=== PATIENT | male | born 1950 | race Caucasian/White ===

== ENCOUNTER 2019-06-12 04:19 | Emergency (ER) | payer BC ==
--- OUTSIDE RECORDS SUMMARY | 2019-06-12 04:22 | XMS REPORT ---
:1950 [facility] Address [address] [place] [id number] Care Team Providers Name Role Phone Unavailable Unavailable Unavailable Problems This patient has no known problems. Allergies, Adverse Reactions, Alerts This patient has no known allergies or adverse reactions. Medications This patient has no known medications.
--- NOTE | 2019-06-12 06:19 | EDPHYS ---
Physician Documentation [facility] Name: Angel Mayorga Age: 69 yrs Sex: Male : 1950 Arrival Date: 06/12/2019 Time: 04:22 Bed 15 Private MD: Abdias Diaz B ED Physician Ghassan Staton HPI: 06/12 04:51 This 69 yrs old Male presents to ER via Ambulatory with complaints of rn hematuria. 04:51 The patient presents with urinary symptoms, hematuria. rn 05:32 Onset: The symptoms/episode began/occurred just prior to arrival. Modifying factors: rn The symptoms are alleviated by nothing, the symptoms are aggravated by urinating. Associated signs and symptoms: Pertinent positives: hematuria, Pertinent negatives: abdominal pain, diarrhea, fever, nausea, vomiting. Severity of symptoms: At their worst the symptoms were mild, in the emergency department the symptoms have improved. The patient has not experienced similar symptoms in the past. The patient has been recently seen by a physician:. Reports had bladder tumor removed by Dr. Ley, reports got back on blood thinner shortly after, was doing well, today woke up to use bathroom and noticed blood-tinged urine when urinating. No fever/trauma/vomiting. Denies clots. . Historical: - Allergies: 04:50 No Known Allergies; - Home Meds: 04:50 atenolol 100 mg Oral tab 1 tab once daily [Active]; candesartan 32 mg oral tab 1 tab wh once daily [Active]; amitriptyline 25 mg Oral tab 1 tab 2 times per day [Active]; Eliquis 5 mg oral tab 1 tab daily [Active]; flecainide 100 mg oral tab 1 tab daily [Active]; amlodipine oral [Active]; rosuvastatin 5 mg oral tab 1 tab once daily [Active]; - PMHx: 04:50 High Cholesterol; GERD; Hypertension; AFIB; Bladder Tumor; Pacemaker; wh - PSHx: 04:50 Bladder Tumor removal; - Immunization history:: Adult Immunizations up to date. - Social history:: Smoking status: Patient/guardian denies using tobacco. - Ebola Screening: : Patient negative for fever greater than or equal to 101.5 degrees Fahrenheit, and additional compatible Ebola Virus Disease symptoms Patient denies exposure to infectious person. - Family history:: not pertinent. - Hospitalizations: : No recent hospitalization is reported. ROS: 05:32 Constitutional: Negative for fever, chills, and weight loss, Eyes: Negative for injury, rn pain, redness, and discharge, Cardiovascular: Negative for chest pain, palpitations, and edema, Respiratory: Negative for shortness of breath, cough, wheezing, and pleuritic chest pain, Abdomen/GI: Negative for abdominal pain, nausea, vomiting, diarrhea, and constipation, Back: Negative for injury and pain, : + hematuria MS/Extremity: Negative for injury and deformity, Skin: Negative for injury, rash, and discoloration, Neuro: Negative for headache, weakness, numbness, tingling, and seizure. Exam: 05:32 Constitutional: This is a well developed, well nourished patient who is awake, alert, rn and in no acute distress. Ambulatory to room without difficulty or assistance. Head/Face: Normocephalic, atraumatic. ENT: MMM Cardiovascular: Regular rate and rhythm. No pulse deficits. Respiratory: No increased work of breathing, no retractions or nasal flaring. Abdomen/GI: soft, non-tender MS/ Extremity: Pulses equal, no cyanosis. Neurovascular intact. Full, normal range of motion. Equal circumference. Neuro: Awake and alert, GCS 15, oriented to person, place, time, and situation. Cranial nerves II-XII grossly intact. Motor strength 5/5 in all extremities. Sensory grossly intact. Cerebellar exam normal. Normal gait. Vital Signs: 04:41 BP 143 / 76; Pulse 60; Resp 18; Pulse Ox 100% ; Weight 102.06 kg; Height 5 ft. 11 in. wh (180.34 cm); 05:15 BP 152 / 89; Pulse 61; Resp 18; Pulse Ox 100% ; wh 06:15 BP 144 / 78; Pulse 61; Resp 18; Pulse Ox 99% on R/A; wh 04:41 Body Mass Index 31.38 (102.06 kg, 180.34 cm) MDM: 04:25 Patient medically screened. rn 06:04 Differential diagnosis: UTI, post surgical bleeding. Data reviewed: vital signs, nurses rn notes. 06:14 Counseling: I had a detailed discussion with the patient and/or guardian regarding: the rn historical points, exam findings, and any diagnostic results supporting the discharge/admit diagnosis, the need for outpatient follow up, to return to the emergency department if symptoms worsen or persist or if there are any questions or concerns that arise at home. Response to treatment: the patient's symptoms have mildly improved after treatment, and as a result, I will discharge patient. Refusal of service: The patient/guardian displays adequate decision making capability and despite a detailed discussion of alternatives, benefits, risks, and consequences refuses: catheter and irrigation. Special discussion: Based on the history and exam findings, there is no indication for further emergent testing or inpatient evaluation. I discussed with the patient/guardian the need to see the urologist for further evaluation of the symptoms. ED course: Patient able to urinate here, no gross hematuria, dip shows 3+ blood, neg nitrate and leukocyte esterase. Urinated again prior to discharge, had some gross blood in toilet, I recommended bladder irrigation, patient declines, states is going to hold blood thinner and monitor for improvement. Return precautions given and understood. Has urology appt on Thursday. Pt states otherwise asymptomatic, and would like chance to stop bleeding before getting catheter and irrigation.. 06/12 04:50 Order name: Urine Culture rn 06/12 04:50 Order name: Urine Dipstick-Ancillary (obtain specimen); Complete Time: 06:22 rn Administered Medications: No medications were administered Disposition: 06/12/19 06:18 Discharged to Home. Impression: Hematuria, unspecified. - Condition is Stable. - Discharge Instructions: Hematuria, Adult. - Medication Reconciliation Form, Thank You Letter, Antibiotic Education, Prescription Opioid Use form. - Follow up: Amadeo Ley MD; When: 1 - 2 days; Reason: Recheck today's complaints, Re-evaluation by your physician. - Problem is new. - Symptoms have improved. Signatures: Dispatcher [employer] EDMS Ghassan Staton MD MD rn Nicole Ortiz Corrections: (The following items were deleted from the chart) 06:18 05:46 CBC+H.LAB.BRZ ordered. EDIN EDMS 06:18 05:46 BASIC METABOLIC PANEL+C.LAB.BRZ ordered. EDIN EDMS 06:18 05:46 PROTIME (+INR)+COAG.LAB.BRZ ordered. EDIN EDMS 06:18 05:46 PTT, ACTIVATED+COAG.LAB.BRZ ordered. EDMS EDMS 06:22 05:45 IV Saline Lock ordered. tayla 06:32 06:18 06/12/2019 06:18 Discharged to Home. Impression: Hematuria, unspecified. Condition is Stable. Forms are Medication Reconciliation Form, Thank You Letter, Antibiotic Education, Prescription Opioid Use. Follow up: Amadeo Ley; When: 1 - 2 days; Reason: Recheck today's complaints, Re-evaluation by your physician. Problem is new. Symptoms have improved. rn
--- NOTE | 2019-06-12 06:19 | ER ---
Nurse's Notes [facility] Name: Angel Mayorga Age: 69 yrs Sex: Male : 1950 Arrival Date: 06/12/2019 Time: 04:22 Bed 15 Private MD: Abdias Diaz B Diagnosis: Hematuria, unspecified Presentation: 06/12 04:39 Presenting complaint: Patient states: He had a bladder tumor removal outpatient done last Thursday and today developed bleeding in urine. Pt states Hx of Afib and taking blood thinner. Transition of care: patient was not received from another setting of care. Onset of symptoms was June 12, 2019. Risk Assessment: Do you want to hurt yourself or someone else? Patient reports no desire to harm self or others. Initial Sepsis Screen: Does the patient meet any 2 criteria? No. Patient's initial sepsis screen is negative. Does the patient have a suspected source of infection? No. Patient's initial sepsis screen is negative. Care prior to arrival: None. 04:39 Method Of Arrival: Ambulatory 04:39 Acuity: DALIA 3 Historical: - Allergies: 04:50 No Known Allergies; - Home Meds: 04:50 atenolol 100 mg Oral tab 1 tab once daily [Active]; candesartan 32 mg oral tab 1 tab once daily [Active]; amitriptyline 25 mg Oral tab 1 tab 2 times per day [Active]; Eliquis 5 mg oral tab 1 tab daily [Active]; flecainide 100 mg oral tab 1 tab daily [Active]; amlodipine oral [Active]; rosuvastatin 5 mg oral tab 1 tab once daily [Active]; - PMHx: 04:50 High Cholesterol; GERD; Hypertension; AFIB; Bladder Tumor; Pacemaker; - PSHx: 04:50 Bladder Tumor removal; - Immunization history:: Adult Immunizations up to date. - Social history:: Smoking status: Patient/guardian denies using tobacco. - Ebola Screening: : Patient negative for fever greater than or equal to 101.5 degrees Fahrenheit, and additional compatible Ebola Virus Disease symptoms Patient denies exposure to infectious person. - Family history:: not pertinent. - Hospitalizations: : No recent hospitalization is reported. Screenin:41 Abuse screen: Denies threats or abuse. Denies injuries from another. Nutritional screening: No deficits noted. Tuberculosis screening: No symptoms or risk factors identified. Fall Risk None identified. Assessment: 04:42 General: Appears in no apparent distress. Behavior is calm, cooperative, appropriate wh for age. Pain: Denies pain. Neuro: Level of Consciousness is awake, alert, obeys commands, Oriented to person, place, time, situation, Appropriate for age. Cardiovascular: Heart tones S1 S2. Respiratory: Airway is patent Respiratory effort is even, unlabored, Respiratory pattern is regular, symmetrical. GI: Abdomen is flat, non-distended. : Reports bloody urine. EENT: No signs and/or symptoms were reported regarding the EENT system. Derm: Skin is intact, is healthy with good turgor, Skin is pink, warm \T\ dry. normal. Musculoskeletal: Circulation, motion, and sensation intact. 05:30 Reassessment: Patient appears in no apparent distress at this time. No changes from previously documented assessment. Patient and/or family updated on plan of care and expected duration. Pain level reassessed. Patient is alert, oriented x 3, equal unlabored respirations, skin warm/dry/pink. 06:31 Reassessment: Patient appears in no apparent distress at this time. No changes from previously documented assessment. Patient and/or family updated on plan of care and expected duration. Pain level reassessed. Patient is alert, oriented x 3, equal unlabored respirations, skin warm/dry/pink. Vital Signs: 04:41 BP 143 / 76; Pulse 60; Resp 18; Pulse Ox 100% ; Weight 102.06 kg; Height 5 ft. 11 in. (180.34 cm); 05:15 BP 152 / 89; Pulse 61; Resp 18; Pulse Ox 100% ; wh 06:15 BP 144 / 78; Pulse 61; Resp 18; Pulse Ox 99% on R/A; wh 04:41 Body Mass Index 31.38 (102.06 kg, 180.34 cm) ED Course: 04:22 Patient arrived in ED. es 04:23 Abdias Diaz MD is Private Physician. es 04:24 Nicole Ortiz is Primary Nurse. wh 04:25 Ghassan Staton MD is Attending Physician. rn 04:41 Triage completed. wh 04:41 Arm band placed on right wrist. wh 04:43 Patient has correct armband on for positive identification. Bed in low position. Call light in reach. Side rails up X 1. Pulse ox on. NIBP on. 06:18 Amadeo Ley MD is Referral Physician. rn 06:31 No provider procedures requiring assistance completed. Patient did not have IV access during this emergency room visit. Administered Medications: No medications were administered Outcome: :18 Discharge ordered by MD. rn 06:31 Discharged to home ambulatory, with family. 06:31 Condition: stable 06:31 Discharge instructions given to patient, family, Instructed on discharge instructions, follow up and referral plans. POC Hematuria Demonstrated understanding of instructions, follow-up care, POC 06:32 Patient left the ED. Signatures: Stephanie Ramos Roman, MD MD rn Habalo, Winsy
[2019-06-12 06:38] VITALS: BP 144/78; O2SAT 99
== END 2019-06-12 06:32 | disposition home or self-care (01) ==
LOC: ER 04:19
DX: R31.9 Hematuria, unspecified (principal); I10 Essential (primary) hypertension; K21.9 Gastro-esophageal reflux disease without esophagitis; E78.00 Pure hypercholesterolemia, unspecified; I48.91 Unspecified atrial fibrillation; Z95.0 Presence of cardiac pacemaker
CPT/HCPCS: 87086; 87088; 99283

== ENCOUNTER 2019-08-14 22:41 | Observation (INO) | payer BC ==
--- OUTSIDE RECORDS SUMMARY | 2019-08-14 22:44 | XMS REPORT ---
:1950 [facility] Address [address] [place] [id number] Care Team Providers Name Role Phone Unavailable Unavailable Unavailable Problems This patient has no known problems. Allergies, Adverse Reactions, Alerts This patient has no known allergies or adverse reactions. Medications This patient has no known medications.
[2019-08-14] MEDS ORDERED: LEVALBUTEROL 1.25 MG/3 ML NEB ONE (23:52)
[2019-08-14] MEDS ORDERED: IPRATROPIUM BROM 0.5MG/2.5ML ONE (23:52)
[2019-08-14] MEDS ORDERED: AZITHROMYCIN 500 MG INJ IVPB ONE (23:52)
[2019-08-14] MEDS ORDERED: CEFTRIAXONE/SWI 1gm 1 GM/10 ML SYR ONE (23:52)
[2019-08-14] MEDS ORDERED: NA CHLORIDE 0.9% 250 ML ONE (23:52)
[2019-08-14] MEDS ORDERED: NA CHLORIDE 0.9% 1,000 ML ONE (23:52)
[2019-08-15 00:23] LABS: Absolute Lymphocytes (CBC) 0.8 K/uL (0.7-4.9); Basophils % 0.3 % (0-1.3); Hematocrit 35.8 % (39.6-49.0); Lymphocytes % 7.6 % (15.3-44.8); RBC Red Blood Cell Count 3.92 M/uL (4.33-5.43)
[2019-08-15 00:37] LABS: ALT/SGPT 20 U/L (12-78); AST/SGOT 13 U/L (15-37); Albumin 3.1 g/dL (3.4-5.0); Alkaline Phosphatase 61 U/L (45-117); BUN Blood Urea Nitrogen 22 mg/dL (7-18); Bicarbonate 27 mmol/L (21-32); Bilirubin Total 0.5 mg/dL (0.2-1.0); Glucose Level 147 mg/dL (74-106); NT PRO-BNP 515 pg/mL (<125); Potassium 3.5 mmol/L (3.5-5.1); Protein, Total 7.5 g/dL (6.4-8.2); Sodium Level 137 mmol/L (136-145); Troponin (Emerg Dept Use Only) < 0.02 ng/mL (0.0-0.045)
[2019-08-15] MEDS ORDERED: CEFTRIAXONE/SWI 1gm 1 GM/10 ML SYR ONE (00:53)
--- NOTE | 2019-08-15 01:32 | ER ---
Nurse's Notes [facility] Name: Angel Mayorga Age: 69 yrs Sex: Male : 1950 Arrival Date: 08/14/2019 Time: 22:44 Bed 18 Private MD: Diagnosis: Fever, unspecified;Dyspnea;Syncope and collapse-near;Cough;Atrial fibrillation and flutter;Unspecified kidney failure Presentation: 08/14 23:00 Presenting complaint: Patient states: STARTED FEELING SICK THURSDAY. THURSDAY VISITED rv CLINIC BECAUSE OF COUGH, BUT NO FEVER. THURSDAY STARTED DEVELOPING FEVER AND FELT WORSE. Transition of care: patient was not received from another setting of care. Onset of symptoms was August 14, 2019 at 19:00. Risk Assessment: Do you want to hurt yourself or someone else? Patient reports no desire to harm self or others. Initial Sepsis Screen: Does the patient meet any 2 criteria? No. Patient's initial sepsis screen is negative. Does the patient have a suspected source of infection? No. Patient's initial sepsis screen is negative. Care prior to arrival: None. 23:00 Method Of Arrival: Ambulatory rv 23:00 Acuity: DALIA 4 rv Triage Assessment: 23:03 General: Appears in no apparent distress. comfortable, Behavior is calm, cooperative. rv Pain: Denies pain. EENT: No signs and/or symptoms were reported regarding the EENT system. Neuro: Level of Consciousness is awake, alert, obeys commands, Oriented to person, place, time, situation. Cardiovascular: Patient's skin is warm and dry. Respiratory: Airway is patent. Derm: Skin is intact, with poor turgor. Historical: - Allergies: 23:03 No Known Allergies; rv - PMHx: 23:03 AFIB; bladder tumor; GERD; High Cholesterol; Hypertension; Pacemaker; rv - PSHx: 23:03 Appendectomy; PACEMAKER; rv - Immunization history:: Adult Immunizations up to date. - Social history:: Smoking status: Patient/guardian denies using tobacco, the patient reports quitting approximately 30 years ago. - Ebola Screening: : No symptoms or risks identified at this time. - Family history:: not pertinent. Screenin:04 Abuse screen: Denies threats or abuse. Denies injuries from another. Nutritional rv screening: No deficits noted. Tuberculosis screening: No symptoms or risk factors identified. Fall Risk None identified. Assessment: 23:04 Reassessment: SEE TRIAGE NOTES. rv 08/15 01:07 Reassessment: Patient appears in no apparent distress at this time. Patient and/or rv family updated on plan of care and expected duration. Pain level reassessed. Patient is alert, oriented x 3, equal unlabored respirations, skin warm/dry/pink. Patient denies pain at this time. Patient states feeling better. Vital Signs: 08/14 23:02 BP 105 / 71; Pulse 67; Resp 19; Temp 98; Pulse Ox 94% on R/A; Weight 99.79 kg; Height 5 rv ft. 11 in. (180.34 cm); Pain 0/10; 08/15 00:00 BP 92 / 64; Pulse 64; Resp 18; Pulse Ox 95% on R/A; rv 01:00 BP 95 / 62; Pulse 64; Resp 17; Pulse Ox 95% on 3 lpm NC; rv 01:45 BP 96 / 57; Pulse 62; Resp 17; Pulse Ox 95% on 3 lpm NC; rv 02:27 BP 98 / 55; Pulse 66; Resp 17; Pulse Ox 96% on 3 lpm NC; rv 08/14 23:02 Body Mass Index 30.68 (99.79 kg, 180.34 cm) rv ED Course: 08/14 22:44 Patient arrived in ED. cl3 22:55 Fam Duran, RN is Primary Nurse. rv 23:02 Triage completed. rv 23:03 Arm band placed on Patient placed Patient notified of wait time. rv 23:04 Patient has correct armband on for positive identification. Pulse ox on. NIBP on. rv 23:15 David Frances MD is Attending Physician. sindi 23:50 Inserted saline lock: 22 gauge in left forearm, using aseptic technique. Blood rv collected. 23:50 First set of blood cultures drawn by me. rv 08/15 00:03 Chest Single View XRAY In Process Unspecified. EDMS 00:10 Second set of blood cultures drawn by me. rv 01:18 Notified ED physician of a critical lab result(s). D-Dimer of [id number] Dr Frances notified. bb 01:29 Elder Castaneda MD is Hospitalizing Provider. sindi 01:35 Thorax Wo Con In Process Unspecified. EDMS 02:27 No provider procedures requiring assistance completed. Patient admitted, IV remains in rv place. 07:01 Primary Nurse role handed off by Fam Duran RN bp 07:01 Mello Parrish, SAGE is Primary Nurse. bp 10:29 EKG done, by pv installer tech. at1 Administered Medications: 08/14 23:40 Drug: Xopenex 2.5 mg Route: Inhalation; rv 08/15 00:49 Follow up: Response: Marked relief of symptoms rv 08/14 23:40 Drug: AtroVENT Aerosol 0.5 mg Route: Inhalation; rv 08/15 00:49 Follow up: Response: Marked relief of symptoms rv 08/14 23:55 Drug: NS 0.9% 1000 ml Route: IV; Rate: 1 bolus; Site: left forearm; rv 08/15 01:07 Follow up: IV Status: Completed infusion; IV Intake: 1000ml rv 00:15 Drug: Zithromax 500 mg Route: IVPB; Infused Over: 1 hrs; Site: left forearm; rv 01:07 Follow up: IV Status: Completed infusion rv 00:15 Drug: Rocephin 2 grams Route: IV; Rate: per protocol; Site: left forearm; rv 01:04 Follow up: IV Status: Completed infusion rv 01:36 Drug: NS 0.9% 500 ml Route: IV; Rate: bolus; Site: left forearm; rv 02:26 Follow up: IV Status: Completed infusion; IV Intake: 500ml rv 02:26 Drug: NS 0.9% 1000 ml Route: IV; Rate: 125 ml/hr; Site: left forearm; rv 02:26 Follow up: IV Status: Infusion continued upon admission rv Intake: 01:07 IV: 1000ml; Total: 1000ml. rv 02:26 IV: 500ml; Total: 1500ml. rv Outcome: 01:28 Discharge ordered by . sindi 01:31 Decision to Hospitalize by Provider. sindi 02:27 Admitted to ER Hold. Please see [facility] for further documentation. rv 02:27 Condition: stable 02:27 Discharge instructions given to patient, family, Instructed on the need for admit. 10:31 Patient left the ED. bp Signatures: Dispatcher [employer] EDMS David Frances MD MD cha Ballard, Brenda, RN RN Marlin Shipman, area captain EKG Tat1 Mello Parrish, RN RN bp Fam Duran, RN RN rv Candie Hernández cl3
--- NOTE | 2019-08-15 01:32 | EDPHYS ---
Physician Documentation [facility] Name: Angel Mayorga Age: 69 yrs Sex: Male : 1950 Arrival Date: 08/14/2019 Time: 22:44 Bed 18 Private MD: ED Physician David Frances HPI: 08/14 23:32 This 69 yrs old Male presents to ER via Ambulatory with complaints of Flu sindi Symptoms. 23:32 The patient has shortness of breath at rest, with light activity. Onset: The sindi symptoms/episode began/occurred 4 day(s) ago. Duration: The symptoms are continuous, and are steadily getting worse. The patient's shortness of breath has no apparent modifying factors. The patient or guardian reports cough, that is intermittent, difficulty breathing, flu symptoms, arthralgias, low-grade fever, myalgias. Modifying factors: The symptoms are alleviated by nothing. the symptoms are aggravated by nothing. Severity of symptoms: At their worst the symptoms were mild in the emergency department the symptoms are unchanged. Historical: - Allergies: 23:03 No Known Allergies; rv - PMHx: 23:03 AFIB; bladder tumor; GERD; High Cholesterol; Hypertension; Pacemaker; rv - PSHx: 23:03 Appendectomy; PACEMAKER; rv - Immunization history:: Adult Immunizations up to date. - Social history:: Smoking status: Patient/guardian denies using tobacco, the patient reports quitting approximately 30 years ago. - Ebola Screening: : No symptoms or risks identified at this time. - Family history:: not pertinent. ROS: 23:32 Constitutional: Negative for fever, chills, and weight loss, Eyes: Negative for injury, sindi pain, redness, and discharge, ENT: Negative for injury, pain, and discharge, Neck: Negative for injury, pain, and swelling, Cardiovascular: Negative for chest pain, palpitations, and edema, Abdomen/GI: Negative for abdominal pain, nausea, vomiting, diarrhea, and constipation, Back: Negative for injury and pain, : Negative for injury, bleeding, discharge, and swelling, MS/Extremity: Negative for injury and deformity, Skin: Negative for injury, rash, and discoloration, Neuro: Negative for headache, weakness, numbness, tingling, and seizure, Psych: Negative for depression, anxiety, suicide ideation, homicidal ideation, and hallucinations, Allergy/Immunology: Negative for hives, rash, and allergies, Endocrine: Negative for neck swelling, polydipsia, polyuria, polyphagia, and marked weight changes, Hematologic/Lymphatic: Negative for swollen nodes, abnormal bleeding, and unusual bruising. 23:32 Respiratory: Positive for cough, shortness of breath, on exertion. Exam: 23:32 Constitutional: This is a well developed, well nourished patient who is awake, alert, sindi and in no acute distress. Head/Face: Normocephalic, atraumatic. Eyes: Pupils equal round and reactive to light, extra-ocular motions intact. Lids and lashes normal. Conjunctiva and sclera are non-icteric and not injected. Cornea within normal limits. Periorbital areas with no swelling, redness, or edema. ENT: Nares patent. No nasal discharge, no septal abnormalities noted. Tympanic membranes are normal and external auditory canals are clear. Oropharynx with no redness, swelling, or masses, exudates, or evidence of obstruction, uvula midline. Mucous membranes moist. Neck: Trachea midline, no thyromegaly or masses palpated, and no cervical lymphadenopathy. Supple, full range of motion without nuchal rigidity, or vertebral point tenderness. No Meningismus. Chest/axilla: Normal chest wall appearance and motion. Nontender with no deformity. No lesions are appreciated. Cardiovascular: Regular rate and rhythm with a normal S1 and S2. No gallops, murmurs, or rubs. Normal PMI, no JVD. No pulse deficits. Abdomen/GI: Soft, non-tender, with normal bowel sounds. No distension or tympany. No guarding or rebound. No evidence of tenderness throughout. Back: No spinal tenderness. No costovertebral tenderness. Full range of motion. Male : Normal genitalia with no discharge or lesions. Skin: Warm, dry with normal turgor. Normal color with no rashes, no lesions, and no evidence of cellulitis. MS/ Extremity: Pulses equal, no cyanosis. Neurovascular intact. Full, normal range of motion. Neuro: Awake and alert, GCS 15, oriented to person, place, time, and situation. Cranial nerves II-XII grossly intact. Motor strength 5/5 in all extremities. Sensory grossly intact. Cerebellar exam normal. Normal gait. Psych: Awake, alert, with orientation to person, place and time. Behavior, mood, and affect are within normal limits. 23:32 Respiratory: the patient does not display signs of respiratory distress, Respirations: normal, Breath sounds: decreased breath sounds, rhonchi, that are mild, are scattered, Respiratory rate: 19 23:58 Musculoskeletal/extremity: DVT Exam: No signs of deep vein thrombosis. no pain, no sindi swelling, no tenderness, negative Homans' sign noted on exam, no appreciated bluish discoloration, no erythema, no increased warmth. Vital Signs: 23:02 BP 105 / 71; Pulse 67; Resp 19; Temp 98; Pulse Ox 94% on R/A; Weight 99.79 kg; Height 5 rv ft. 11 in. (180.34 cm); Pain 0/10; 08/15 00:00 BP 92 / 64; Pulse 64; Resp 18; Pulse Ox 95% on R/A; rv 01:00 BP 95 / 62; Pulse 64; Resp 17; Pulse Ox 95% on 3 lpm NC; rv 01:45 BP 96 / 57; Pulse 62; Resp 17; Pulse Ox 95% on 3 lpm NC; rv 02:27 BP 98 / 55; Pulse 66; Resp 17; Pulse Ox 96% on 3 lpm NC; rv 08/14 23:02 Body Mass Index 30.68 (99.79 kg, 180.34 cm) rv MDM: 08/14 23:15 Patient medically screened. [facility] 23:35 Data reviewed: vital signs, nurses notes, lab test result(s), EKG, radiologic studies, sindi plain films. 08/14 23:06 Order name: Flu; Complete Time: 00:19 08/14 23:32 Order name: CBC with Diff; Complete Time: 00:36 [facility] 08/14 23:32 Order name: Comprehensive Metabolic Panel [facility] 08/14 23:32 Order name: Blood Culture Adult (2) [facility] 08/14 23:32 Order name: Troponin (emerg Dept Use Only) [facility] 08/14 23:32 Order name: BNP [facility] 08/15 01:02 Order name: D-Dimer [facility] 08/15 01:28 Order name: Urine Culture [facility] 08/15 01:42 Order name: Basic Metabolic Panel [facility] 08/15 01:42 Order name: Basic Metabolic Panel [facility] 08/14 23:56 Order name: Chest Single View XRAY [facility] 08/15 01:03 Order name: Thorax Wo Con [facility] 08/15 01:42 Order name: Lipid Profile [facility] 08/15 01:42 Order name: Lipid Profile [facility] 08/15 01:42 Order name: Troponin I [facility] 08/15 01:42 Order name: Troponin I [facility] 08/15 01:42 Order name: Troponin I [facility] 08/15 01:43 Order name: Echo with Doppler [facility] 08/15 01:43 Order name: Vent Perfusion VQ Scan [facility] 08/15 01:43 Order name: Extrem Venous W Compress Marcial [facility] 08/15 01:43 Order name: Magnesium [facility] 08/15 01:44 Order name: Protime (+INR) [facility] 08/15 08:29 Order name: US [facility] 08/15 01:27 Order name: EKG; Complete Time: 01: [facility] 08/15 01:27 Order name: Cardiac monitoring; Complete Time: : [facility] 08/15 01:27 Order name: EKG - Nurse/Tech; Complete Time: 01:39 [facility] 08/15 01:27 Order name: IV Saline Lock; Complete Time: : [facility] 08/15 01:27 Order name: Labs collected and sent; Complete Time: : [facility] 08/15 01:27 Order name: O2 Per Protocol; Complete Time: [facility] 08/15 01:27 Order name: O2 Sat Monitoring; Complete Time: : [facility] 08/15 01:43 Order name: Heart Healthy [facility] 08/15 01:43 Order name: EKG Electrocardiogram [facility] 08/15 01:43 Order name: EKG Electrocardiogram [facility] Administered Medications: 23:40 Drug: Xopenex 2.5 mg Route: Inhalation; rv 08/15 00:49 Follow up: Response: Marked relief of symptoms rv 08/14 23:40 Drug: AtroVENT Aerosol 0.5 mg Route: Inhalation; rv 08/15 00:49 Follow up: Response: Marked relief of symptoms rv 08/14 23:55 Drug: NS 0.9% 1000 ml Route: IV; Rate: 1 bolus; Site: left forearm; rv 08/15 01:07 Follow up: IV Status: Completed infusion; IV Intake: 1000ml rv 00:15 Drug: Zithromax 500 mg Route: IVPB; Infused Over: 1 hrs; Site: left forearm; rv 01:07 Follow up: IV Status: Completed infusion rv 00:15 Drug: Rocephin 2 grams Route: IV; Rate: per protocol; Site: left forearm; rv 01:04 Follow up: IV Status: Completed infusion rv 01:36 Drug: NS 0.9% 500 ml Route: IV; Rate: bolus; Site: left forearm; rv 02:26 Follow up: IV Status: Completed infusion; IV Intake: 500ml rv 02:26 Drug: NS 0.9% 1000 ml Route: IV; Rate: 125 ml/hr; Site: left forearm; rv 02:26 Follow up: IV Status: Infusion continued upon admission rv Disposition: 08/15/19 01:31 Hospitalization ordered by Elder Castaneda for Inpatient Admission. Preliminary diagnosis are Fever, unspecified, Dyspnea, Syncope and collapse - near, Cough, Atrial fibrillation and flutter, Unspecified kidney failure. - Bed requested for Telemetry/MedSurg (Inpatient). - Status is Inpatient Admission. bp - Condition is Fair. - Problem is new. - Symptoms have improved. UTI on Admission? No Signatures: Dispatcher [employer] [facility] Kadie Canchola RN David Prasad MD MD cha Peltier, Brian, RN RN Fam Marsh, RN RN rv Corrections: (The following items were deleted from the chart) 00:08 08/14 23:32 Chest Pa And Lat (2 Views)+RAD.RAD.BRZ ordered. [facility] 08/15 01:03 08/14 23:56 Chest For PE Angio+CT.RAD.BRZ ordered. [facility] 08/15 01:05 01:03 Thorax Wo Con+CT.RAD.BRZ ordered. [facility] 01:29 01:28 08/15/2019 01:28 Discharged to Home. Impression: Fever, unspecified; Acute upper sindi respiratory infection, unspecified. Condition is Stable. Discharge Instructions: Fever, Adult, Upper Respiratory Infection, Adult, Upper Respiratory Infection, Adult, Guhk-tz-Rsay, Cough, Adult. Prescriptions for Medrol (Macario) 4 mg Oral Tablets, Dose Pack - take 1 tablet by ORAL route as directed - follow package instructions; 1 packet, Albuterol Sulfate 90 mcg/actuation - inhale 1-2 puff by INHALATION route every 4-6 hours; 1 Inhaler, Zithromax 500 mg Oral Tablet - take 1 tablet by ORAL route once daily for 4 days; 4 tablet. and Forms are Medication Reconciliation Form, Thank You Letter, Antibiotic Education, Prescription Opioid Use. Follow up: Private Physician; When: 2 - 3 days; Reason: Recheck today's complaints, Continuance of care, Re-evaluation by your physician. Problem is new. Symptoms have improved. sindi 01:32 01:31 Hospitalization Ordered by Elder Castaneda MD for Inpatient Admission. Preliminary sindi diagnosis is Fever, unspecified; Dyspnea; Syncope and collapse - near; Cough; Atrial fibrillation and flutter. Bed requested for Telemetry/MedSurg (Inpatient). Status is Inpatient Admission. Condition is Fair. Problem is new. Symptoms have improved. UTI on Admission? No. sindi 01:38 01:32 08/15/2019 01:31 Hospitalization Ordered by Elder Castaneda MD for Inpatient mw Admission. Preliminary diagnosis is Fever, unspecified; Dyspnea; Syncope and collapse - near; Cough; Atrial fibrillation and flutter; Unspecified kidney failure. Bed requested for Telemetry/MedSurg (Inpatient). Status is Inpatient Admission. Condition is Fair. Problem is new. Symptoms have improved. UTI on Admission? No. sindi 01:43 01:27 BASIC METABOLIC PANEL+C.LAB.BRZ ordered. [facility] 01:43 01:27 HEPATIC FUNCTION+C.LAB.BRZ ordered. [facility] 01:43 01:27 MAGNESIUM+C.LAB.BRZ ordered. [facility] 01:44 01:27 PROTIME (+INR)+COAG.LAB.BRZ ordered. [facility] 06:47 01:38 08/15/2019 01:31 Hospitalization Ordered by Elder Castaneda MD for Inpatient mw Admission. Preliminary diagnosis is Fever, unspecified; Dyspnea; Syncope and collapse - near; Cough; Atrial fibrillation and flutter; Unspecified kidney failure. Bed requested for [facility] ER HOLD. Status is Inpatient Admission. Condition is Fair. Problem is new. Symptoms have improved. UTI on Admission? No. mw 10:31 06:47 08/15/2019 01:31 Hospitalization Ordered by Elder Castaneda MD for Inpatient bp Admission. Preliminary diagnosis is Fever, unspecified; Dyspnea; Syncope and collapse - near; Cough; Atrial fibrillation and flutter; Unspecified kidney failure. Bed requested for Telemetry/MedSurg (Inpatient). Status is Inpatient Admission. Condition is Fair. Problem is new. Symptoms have improved. UTI on Admission? No. mw
[2019-08-15] MEDS ORDERED: NA CHLORIDE 0.9% 1,000 ML ONE (01:35)
[2019-08-15] MEDS ORDERED: ACETAMINOPHEN 500 MG TAB PO PRN (01:37)
[2019-08-15] MEDS ORDERED: ALPRAZOLAM 0.25 MG TABLET PO PRN (01:37)
[2019-08-15 01:47] LABS: Protime INR 1.75
[2019-08-15 01:48] LABS: Magnesium 1.9 mg/dL (1.8-2.4)
[2019-08-15 02:02] VITALS: BMI 30.7
[2019-08-15] MEDS: METOPROLOL TAR 50 MG TAB PO SCH ×2 (05:04→09:00)
[2019-08-15 06:36] LABS: HDL Cholesterol 32 mg/dL (40-60); LDL Cholesterol, Calculated 61 (<130); Troponin I < 0.02 ng/mL (0.0-0.045)
[2019-08-15] MEDS: PANTOPRAZOLE 40MG TABLET PO SCH ×2 (08:00→15:41)
--- NOTE | 2019-08-15 08:08 | RAD REPORT ---
EXAM DESCRIPTION: US - Extrem Venous W Compress Marcial - 08/15/2019 7:32 am CLINICAL HISTORY: DVT Bilateral leg edema and swelling. COMPARISON: No comparisons TECHNIQUE: Real-time sonographic interrogation of the left and right lower extremity deep venous sys tems was performed. FINDINGS: Normal compressibility, flow augmentation, phasic flow and spontaneous flow is identified in both the left and right lower extremity deep venous systems. IMPRESSION: No sonographic evidence of left or right lower extremity deep venous thrombosis.
--- NOTE | 2019-08-15 08:13 | RAD REPORT ---
EXAM DESCRIPTION: NM - Vent Perfusion VQ Scan - 08/15/2019 7:15 am CLINICAL HISTORY: Pulmonary embolism Chest pain, shortness of breath COMPARISON: Thorax Wo Con dated 08/15/2019 TECHNIQUE: 13.3mCi Xe-133 gas inhaled and 7.2mCi Tc-MAA IV. Planar ventilation scan was performed in posterior projection after Xe-133 gas inhalation (wash-in, e quilibrium, and wash-out phases) followed by perfusion scan with Tc-MAA IV in multiple projections. Examination is correlated with recent chest radiograph. FINDINGS: Normal ventilation with appropriate wash-out and no significant air-trapping. No mismatched segmental perfusion defect. IMPRESSION: Very low probability of acute pulmonary embolism.
--- NOTE | 2019-08-15 08:17 | RAD REPORT ---
EXAM DESCRIPTION: RAD - Chest Single View - 08/15/2019 12:02 am CLINICAL HISTORY: Cough;Dyspnea Chest pain. COMPARISON: Chest Pa And Lat (2 Views) dated 05/23/2019; CHEST PA AND LAT 2 VIEW dated 03/06/2010; CH EST PA AND LAT 2 VIEW dated 11/14/2004 FINDINGS: Portable technique limits examination quality. The lungs are emphysematous but grossly clear. The heart is upper limit of normal in size. No displac ed fractures.Dual lead pacer device is in place.
--- NOTE | 2019-08-15 08:28 | RAD REPORT ---
EXAM DESCRIPTION: - CP - 08/15/2019 7:32 am CLINICAL HISTORY: near syncope Headache, drowsiness, syncope COMPARISON: No comparisons TECHNIQUE: Real-time sonographic evaluation of both carotid systems was performed. Doppler interroga tion was performed with waveform tracing bilaterally. FINDINGS: Normal high resistance waveforms are noted in both external carotid arteries. The common c arotid arteries and internal carotid arteries show normal low resistance waveforms. Mild mixed plaque is seen in both proximal internal carotid arteries. Peak systolic and end diastolic velocity values and the ICA/CCA ratios are in the non-hemodynamically significant range. Antegrade flow seen in both vertebral arteries. IMPRESSION: Mild mixed plaque is seen in both proximal internal carotid arteries. No evidence of a hemodynamically significant stenosis.
[2019-08-15] MEDS ORDERED: METHYLPREDNISOLONE 125 MG INJ IV ONE (08:50)
--- NOTE | 2019-08-15 08:58 | P.HP ---
Certification for Inpatient Patient admitted to: Observation With expected LOS: <2 Midnights Patient will require the following post-hospital care: None Practitioner: I am a practitioner with admitting privileges, knowledge of patient current condition, hospital course, and medical plan of care. Services: Services provided to patient in accordance with Admission requirements found in Title 42 Section 412.3 of the Code of Federal Regulations Patient History Date of Service: 08/15/19 Reason for admission: Near syncope; atrial fibrillation; persistant coughing & congestion History of Present Illness: Patient is a 69-year-old old gentleman who came into the hospital with persistent coughing congestion. Patient apparently had a near syncopal episode while getting a chest x-ray. Patient had atrial fibrillation and had a run of AFib with RVR. Decision was made to admit the patient to the hospital. They spoke to the PCP and they wanted patient admitted for possible pulmonary embolism. Patient on anti coagulation. This very unlikely. Patient be admitted to the hospital for V/Q scan. Patient also has a history of tobacco abuse. Patient quit smoking 1 years ago. Patient had a 50+ year smoking history. Patient has some emphysematous changes on a chest x-ray. Will probably treat him for COPD or have a follow-up as an outpatient with pulmonary to help with his coughing congestion. Allergies No Known Allergies Allergy (Verified 08/15/19 03:02) Home Medications: Amitriptyline [Elavil] 25 mg PO BID 08/15/19 Amlodipine Besylate 10 mg PO DAILY 08/15/19 Apixaban [Eliquis] 5 mg PO BID 08/15/19 Candesartan Cilexetil 32 mg PO DAILY 08/15/19 Esomeprazole Mag Trihydrate [Nexium] 20 mg PO BID 08/15/19 Flecainide [Tambocor] 100 mg PO BID 08/15/19 Rosuvastatin [Crestor] 5 mg PO BEDTIME 08/15/19 atenoloL [Atenolol] 100 mg PO DAILY 08/15/19 - Past Medical/Surgical History Has patient received pneumonia vaccine in the past: Yes -: hypertension -: Atrial fibrillation -: Tobacco use -: Pacemaker placement - Family History Father Family History: Reviewed- Non-Contributory - Social History Smoking Status: Former smoker Alcohol use: No CD- Drugs: No Place of Residence: Home Review of Systems 10-point ROS is otherwise unremarkable Physical Examination - Vital Signs Temperature: 97.8 F Blood Pressure: 93/56 Pulse: 62 Respirations: 16 Pulse Ox (%): 97 - Physical Exam General: Alert, In no apparent distress, Oriented x3 HEENT: Atraumatic, PERRLA, Mucous membr. moist/pink, EOMI, Sclerae nonicteric Neck: Supple, 2+ carotid pulse no bruit, No LAD, Without JVD or thyroid abnormality Respiratory: Clear to auscultation bilaterally, Normal air movement Cardiovascular: Regular rate/rhythm, Normal S1 S2, No murmurs Gastrointestinal: Normal bowel sounds, Soft and benign, Non-distended, No tenderness Musculoskeletal: No clubbing, No swelling, No tenderness Integumentary: No rashes Neurological: Normal gait, Normal speech, Normal strength at 5/5 x4 extr, Normal tone, Sensation intact, Cranial nerves 3-12 intact, Normal affect Lymphatics: No axilla or inguinal lymphadenopathy - Studies Laboratory Data (last 24 hrs) 08/15/19 01:27: PT Cancelled, INR Cancelled 08/15/19 01:27: Sodium Cancelled, Potassium Cancelled, BUN Cancelled, Creatinine Cancelled, Glucose Cancelled, Magnesium Cancelled, Total Bilirubin Cancelled, AST Cancelled, ALT Cancelled, Alkaline Phosphatase Cancelled 08/15/19 00:00: PT 20.2 H, INR 1.75 08/14/19 23:50: Sodium 137, Potassium 3.5, BUN 22 H, Creatinine 1.63 H, Glucose 147 H, Magnesium 1.9, Total Bilirubin 0.5, AST 13 L, ALT 20, Alkaline Phosphatase 61 08/14/19 23:50: WBC 10.3, Hgb 12.2 L, Hct 35.8 L, Plt Count 133 L Microbiology Data (last 24 hrs): 08/14/19 23:05 Nasopharnyx Influenza Type A Antigen Screen - Final 08/14/19 23:05 Nasopharnyx Influenza Type B Antigen Screen - Final Assessment & Plan - Problems (Diagnosis) (1) COPD with acute exacerbation Current Visit: Yes Status: Acute (2) Atrial fibrillation Current Visit: Yes Status: Acute (3) HTN (hypertension) Current Visit: Yes Status: Acute (4) Near syncope Current Visit: Yes Status: Acute - Plan Plan: 1. Carotid Doppler 2. Echocardiogram 3. V/Q scan 4. Venous Doppler 5. IV hydration 6. Steroids, inhaler therapy, and antibiotics 7. GI and DVT prophylaxis Discharge Plan: Home Plan to discharge in: 48 Hours - Advance Directives Does patient have a Living Will: No Does patient have a Durable POA for Healthcare: No - Code Status/Comfort Care Code Status Assessed: Yes Code Status: Full Code Critical Care: No Time Spent Managing PTS Care (In Minutes): 45
[2019-08-15] MEDS: FLECAINIDE 100 MG TAB PO SCH ×2 (09:00→20:56)
[2019-08-15] MEDS: atenoloL 50 MG TAB PO SCH (09:00)
[2019-08-15] MEDS: AMLODIPINE 10 MG TAB PO SCH (09:00)
[2019-08-15] MEDS ORDERED: ENOXAPARIN 100 MG/ML SYR SQ SCH (09:00)
[2019-08-15] MEDS: APIXABAN 5 MG TABLET PO SCH ×2 (09:00→20:55)
[2019-08-15] MEDS: AMITRIPTYLINE 25 MG TAB PO SCH ×2 (09:00→20:56)
[2019-08-15] MEDS: ASPIRIN EC 81 MG TAB PO SCH (09:00)
[2019-08-15] MEDS ORDERED: VALSARTAN 160 MG TAB PO SCH (09:00)
--- NOTE | 2019-08-15 09:10 | P.DS ---
Discharge Date: 08/15/19 Disposition: ROUTINE DISCHARGE Discharge Condition: GOOD Reason for Admission: Near syncope; atrial fibrillation; persistant coughing & congestion - Problems (1) COPD with acute exacerbation Current Visit: Yes Status: Acute (2) Atrial fibrillation Current Visit: Yes Status: Acute (3) HTN (hypertension) Current Visit: Yes Status: Acute (4) Near syncope Current Visit: Yes Status: Acute Brief History of Present Illness: Patient is a 69-year-old old gentleman who came into the hospital with persistent coughing congestion. Patient apparently had a near syncopal episode while getting a chest x-ray. Patient had atrial fibrillation and had a run of AFib with RVR. Decision was made to admit the patient to the hospital. They spoke to the PCP and they wanted patient admitted for possible pulmonary embolism. Patient on anti coagulation. This very unlikely. Patient be admitted to the hospital for V/Q scan. Patient also has a history of tobacco abuse. Patient quit smoking 1 years ago. Patient had a 50+ year smoking history. Patient has some emphysematous changes on a chest x-ray. Will probably treat him for COPD or have a follow-up as an outpatient with pulmonary to help with his coughing congestion. Hospital Course: Patient is clinically doing well with no new complaints. Patient workup is been unremarkable. Patient get continue treatment for his cough. He may have had a coughing episode and got a vagal reaction. He will need pulmonary follow- up for his emphysematous changes on his x-ray. Patient is stable for discharge at this time. Vital Signs/Physical Exam: Temp Pulse Resp BP Pulse Ox 97.8 F 62 16 93/56 L 97 08/15/19 09:01 08/15/19 09:01 08/15/19 09:01 08/15/19 09:01 08/15/19 09:01 General: Alert, In no apparent distress, Oriented x3 Laboratory Data at Discharge: WBC 10.3 K/uL (4.3-10.9) 08/14/19 23:50 Hgb 12.2 g/dL (13.6-17.9) L 08/14/19 23:50 Hct 35.8 % (39.6-49.0) L 08/14/19 23:50 Plt Count 133 K/uL (152-406) L 08/14/19 23:50 PT Cancelled 01/20/20 01:27 INR Cancelled 08/15/19 01:27 Sodium 137 mmol/L (136-145) 08/14/19 23:50 Potassium 3.5 mmol/L (3.5-5.1) 08/14/19 23:50 BUN 22 mg/dL (7-18) H 08/14/19 23:50 Creatinine 1.63 mg/dL (0.55-1.3) H 08/14/19 23:50 Glucose 147 mg/dL (74-106) H 08/14/19 23:50 Magnesium Cancelled 08/15/19 01:27 Total Bilirubin 0.5 mg/dL (0.2-1.0) 08/14/19 23:50 AST 13 U/L (15-37) L 08/14/19 23:50 ALT 20 U/L (12-78) 08/14/19 23:50 Alkaline Phosphatase 61 U/L (45-117) 08/14/19 23:50 Troponin I < 0.02 ng/mL (0.0-0.045) 08/15/19 06:05 Triglycerides 95 mg/dL (<150) 08/15/19 06:05 Cholesterol 112 mg/dL (<200) 08/15/19 06:05 HDL Cholesterol 32 mg/dL (40-60) L 08/15/19 06:05 Cholesterol/HDL Ratio 3.50 08/15/19 06:05 Home Medications: Amitriptyline [Elavil*] 25 mg PO BID 08/15/19 Amlodipine Besylate 10 mg PO DAILY 08/15/19 Apixaban [Eliquis] 5 mg PO BID 08/15/19 Candesartan Cilexetil 32 mg PO DAILY 08/15/19 Cefdinir [Omnicef] 300 mg PO BID #10 capsule 08/15/19 Esomeprazole Mag Trihydrate [Nexium] 20 mg PO BID 08/15/19 Flecainide [Tambocor*] 100 mg PO BID 08/15/19 Ipratropium/Albuterol Sulfate [Combivent Respimat Inhal [place]] 4 gm IH Q6HP PRN #1 aer.w.adap 08/15/19 Rosuvastatin [Crestor*] 5 mg PO BEDTIME 08/15/19 atenoloL [Atenolol] 100 mg PO DAILY 08/15/19 predniSONE [Deltasone] 20 mg PO BID #10 tab 08/15/19 New Medications: Cefdinir [Omnicef] 300 mg PO BID #10 capsule Ipratropium/Albuterol Sulfate [Combivent Respimat Inhal [place]] 4 gm IH Q6HP PRN #1 aer.w.adap PRN Reason: Cough predniSONE [Deltasone] 20 mg PO BID #10 tab Patient Discharge Instructions: OK TO DC IV AND DC HOME. FOLLOW-UP WITH PRIMARY CARE PROVIDER IN 1-2 WEEKS. FOLLOW-UP WITH CARDIOLOGY IN 1-2 WEEKS. Follow with quality assurance coordinator in 2-4 weeks. RETURN TO THE ER IF symptoms worsen. CALL or TEXT DR. BRUNO AT [phone] IF ANY QUESTIONS REGARDING HOSPITAL STAY. PLEASE CALL THE FLOOR AT [phone] IF ANY MEDICATION OR NURSING QUESTIONS. Diet: AHA Activity: Fall precautions Time spent managing pt's care (in minutes): 20
[2019-08-15] MEDS ORDERED: PANTOPRAZOLE 40MG TABLET PO ONE (09:52)
[2019-08-15] MEDS ORDERED: VALSARTAN 80 MG TAB ONE (09:52)
[2019-08-15] MEDS ORDERED: METHYLPREDNISOLONE 125 MG INJ ONE (09:52)
[2019-08-15] MEDS ORDERED: METOPROLOL TAR 50 MG TAB ONE (09:52)
[2019-08-15] MEDS ORDERED: ASPIRIN EC 81 MG TAB PO ONE (09:53)
[2019-08-15] MEDS ORDERED: atenoloL 50 MG TAB ONE (09:53)
[2019-08-15] MEDS ORDERED: AMLODIPINE 5 MG TAB ONE (09:53)
[2019-08-15] MEDS ORDERED: ENOXAPARIN 100 MG/ML SYR SQ ONE (09:54)
--- NOTE | 2019-08-15 13:24 | RAD REPORT ---
EXAM DESCRIPTION: CT Thorax Wo Con CLINICAL HISTORY: Cough; Dyspnea TECHNIQUE: Contiguous axial images obtained through the chest without IV contrast. Coronal and sagit saturnino reformatted images provided. This exam was performed according to our departmental dose-optimization program, which includes autom ated exposure control, adjustment of the mA and/or kV according to patient size and/or use of iterati ve reconstruction technique. COMPARISON: No prior exams provided for comparison. FINDINGS: Lungs: Scattered bilateral subsegmental atelectasis/pleural parenchymal scar. 3 mm right middle lobe subpleural nodule (series 203 image 59 and series 202 image 80). No focal consolidation. Airways are patent. Pleura: No effusion. No pneumothorax. Heart and pericardium: The heart is enlarged. Coronary artery calcification. Minimal pericardial flui d. Left chest wall dual-lead pacer. Mediastinum and joan: No pathologically enlarged lymph nodes. Small hiatal hernia. Lower neck and chest wall: Unremarkable Vessels: Mild atherosclerotic disease. The ascending aorta measures 3.5 cm in maximum diameter. There is an ovoid smoothly marginated low density structure with thin peripheral calcification abutting th e ascending aorta measuring 3.1 x 1.9 x 2.3 cm. Upper abdomen: The liver is enlarged. Subcentimeter left hepatic hypodensity which is too small to ch aracterize. Bones: Mild multilevel spondylosis. No acute fracture. IMPRESSION: 1. No acute infiltrate. 2. 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 Follow up/further evaluation is recommended. 3. 3.0 mm solid right middle lobe pulmonary nodule. No routine follow-up imaging is recommended. Th martínez guidelines do not apply to immunocompromised patients and patients with cancer. Follow up in nhung ents with significant comorbidities as clinically warranted. For lung cancer screening, adhere to Reina g-RADS guidelines. Reference: Radiology. 2017; 284(1):228-43. 4. Other findings as above. Electronically signed by: Roxanne Craig MD 08/15/2019 1:49 AM PRINCIPAL PROCESS ENGINEER Due to temporary technical issues with the PACS/Fluency reporting system, reports are being signed by the in house radiologist as a courtesy to ensure prompt reporting. The interpreting radiologist is f ully responsible for the content of the report.
--- NOTE | 2019-08-15 14:43 | ECHO ---
HEIGHT: 6 ft 0 in WEIGHT: 175 lb 0 oz DATE OF STUDY: 08/15/[address]: Elder Castaneda MD 2-DIMENSIONAL: YES M.MODE: YES DOPPLER: YES COLOR FLOW: YES TDS: NO PORTABLE: NO DEFINITY: NO BUBBLE STUDY: NO DIAGNOSIS: CHEST PAIN CARDIAC HISTORY: CATHERIZATION: NO SURGERY: NO PROSTHETIC VALVE: NO PACEMAKER: YES MEASUREMENTS (cm) DIASTOLIC (NORMALS) SYSTOLIC (NORMALS) IVSd 1.1 (0.6-1.2) LA Diam 4.1 (1.9-4.0) LVEF 76% LVIDd 5.2 (3.5-5.7) LVIDs 2.8 (2.0-3.5) %FS 45% LVPWd 0.9 (0.6-1.2) Ao Diam 3.4 (2.0-3.7) 2 DIMENSIONAL ASSESSMENT: RIGHT ATRIUM: NORMAL LEFT ATRIUM: DILATED RIGHT VENTRICLE: PACEMAKER CATHETER LEFT VENTRICLE: NORMAL TRICUSPID VALVE: NORMAL MITRAL VALVE: NORMAL PULMONIC VALVE: NORMAL AORTIC VALVE: NORMAL PERICARDIAL EFFUSION: NONE AORTIC ROOT: NORMAL LEFT VENTRICULAR WALL MOTION: NORMAL. DOPPLER/COLOR FLOW: MILD TRICUSPID REGURGITATION. NORMAL RIGHT VENTRICULAR SYSTOLIC PRESSURE. COMMENTS: NORMAL LEFT VENTRICULAR EJECTION FRACTION. DILATED LEFT ATRIUM. PACEMAKER IN RIGHT VENTRICLE. MILD TRICUSPID REGURGITATION. TECHNOLOGIST: RAMSEY MURPHY
--- NOTE | 2019-08-15 14:53 | EKG ---
Test Date: 2019-08-15 Test Time: 10:22:06 Digital Controls Technical Officer: WILLIAM MEASUREMENT RESULTS: Intervals: Rate: 66 NM: 194 QRSD: 108 QT: 448 QTc: 469 [place]: P: 27 NM: 194 QRS: 25 T: 54 INTERPRETIVE STATEMENTS: Normal sinus rhythm Nonspecific T wave abnormality Prolonged QT Abnormal ECG Compared to ECG 08/15/2019 01:38:34 Prolonged QT interval now present First degree AV block no longer present T-wave abnormality still present Electronically Signed On 08-15-19 14:51:33 FILL MANAGER by Jorge Celaya
--- NOTE | 2019-08-15 14:53 | EKG ---
Test Date: 2019-08-15 Test Time: 01:38:34 Cotton Factor: ANDREIA MEASUREMENT RESULTS: Intervals: Rate: 63 SC: 218 QRSD: 112 QT: 416 QTc: 425 [place]: P: 11 SC: 218 QRS: 7 T: 10 INTERPRETIVE STATEMENTS: Sinus rhythm with 1st degree AV block Nonspecific T wave abnormality Abnormal ECG Compared to ECG 05/23/2019 10:48:56 First degree AV block now present T-wave abnormality now present Atrial-paced complex(es) or rhythm no longer present Electronically Signed On 08-15-19 14:51:48 TANK TRUCK LOADER by Jorge Celaya
--- NOTE | 2019-08-15 15:39 | P.PN ---
Subjective Date of Service: 08/15/19 Primary Care Provider: Dr. Diaz Chief Complaint: Near syncope; atrial fibrillation; persistant coughing & congestion Subjective: Improving, Doing well Physical Examination - Vital Signs Temperature: 98.4 F Blood Pressure: 124/59 Pulse: 80 Respirations: 18 Pulse Ox (%): 96 - Physical Exam General: Alert, In no apparent distress, Oriented x3, Cooperative HEENT: Atraumatic Neck: Supple Respiratory: Clear to auscultation bilaterally, Normal air movement Cardiovascular: Normal pulses, Regular rate/rhythm Gastrointestinal: Normal bowel sounds, Non-distended, No tenderness, No masses, No rebound, No guarding - Studies Laboratory Data (last 24 hrs) 08/15/19 01:27: PT Cancelled, INR Cancelled 08/15/19 01:27: Sodium Cancelled, Potassium Cancelled, BUN Cancelled, Creatinine Cancelled, Glucose Cancelled, Magnesium Cancelled, Total Bilirubin Cancelled, AST Cancelled, ALT Cancelled, Alkaline Phosphatase Cancelled 08/15/19 00:00: PT 20.2 H, INR 1.75 08/14/19 23:50: Sodium 137, Potassium 3.5, BUN 22 H, Creatinine 1.63 H, Glucose 147 H, Magnesium 1.9, Total Bilirubin 0.5, AST 13 L, ALT 20, Alkaline Phosphatase 61 08/14/19 23:50: WBC 10.3, Hgb 12.2 L, Hct 35.8 L, Plt Count 133 L Microbiology Data (last 24 hrs): 08/14/19 23:05 Nasopharnyx Influenza Type A Antigen Screen - Final 08/14/19 23:05 Nasopharnyx Influenza Type B Antigen Screen - Final Assessment & Plan Discharge Plan: Home Plan to discharge in: 24 Hours Physician Review Additional Text: Impression: Presyncope likely acute renal injury from dehydration Atrial fibrillation on chronic anti coagulation therapy with pacemaker. 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 Echo current, chest x-ray, CT scan reviewed. Atrial fibrillation on chronic anti coagulation therapy with pacemaker: Stable. Continue with medication. Hypertension: Meds reviewed and restarted. HOLD ARB inhibitor. 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
[2019-08-15 15:52] LABS: Absolute Lymphocytes (CBC) 0.8 K/uL (0.7-4.9); Basophils % 0.1 % (0-1.3); Hematocrit 33.6 % (39.6-49.0); Lymphocytes % 10.8 % (15.3-44.8); MPV 9.3 fL (7.6-11.3); RBC Red Blood Cell Count 3.68 M/uL (4.33-5.43)
[2019-08-15] MEDS ORDERED: NA CHLORIDE 0.9% 1,000 ML IV SCH (16:00)
[2019-08-15 17:39] LABS: Blood Morphology Comment NOT SEEN (NOT SEEN); Platelet Estimate ADEQ; Urine White Blood Cell Casts OK
[2019-08-15] MEDS ORDERED: ROSUVASTATIN 10 MG TAB PO SCH (21:00)
[2019-08-16 05:58] LABS: Absolute Lymphocytes (CBC) 1.5 K/uL (0.7-4.9); Basophils % 0.1 % (0-1.3); Hematocrit 32.3 % (39.6-49.0); Lymphocytes % 18.6 % (15.3-44.8); MPV 9.1 fL (7.6-11.3); RBC Red Blood Cell Count 3.57 M/uL (4.33-5.43)
[2019-08-16 06:07] LABS: Potassium 3.7 mmol/L (3.5-5.1)
--- NOTE | 2019-08-16 08:37 | RAD REPORT ---
EXAM DESCRIPTION: CT - Thorax W/ Con - 08/16/2019 7:49 am CLINICAL HISTORY: Aortic pseudoaneurysm/cough COMPARISON: August 15, 2019 CT TECHNIQUE: Computed axial tomography of the chest was obtained. 100 cc Isovue 300 was administered i ntravenously. All CT scans are performed using dose optimization technique as appropriate and may include automated exposure control or mA/KV adjustment according to patient size. FINDINGS: A 28 millimeter mass is present within the anterior mediastinum abutting the ascending tho racic aorta. When compared to the prior unenhanced CT scan no enhancement is demonstrated. The [place]oun[place] unit equals 30. 3 millimeter right middle lobe nodule are unchanged. A pleural effusion is not present. A pericardial effusion is not seen. A small hiatal hernia IMPRESSION: 28 millimeter low to intermediate density mass within the anterior mediastinum does not enhance. 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 A pseudoaneurysm is doubtful. It is recommended that the patient have a followup CT chest in 6 months to assess stability
[2019-08-16] MEDS: AMLODIPINE 10 MG TAB PO SCH (09:37)
[2019-08-16] MEDS: FLECAINIDE 100 MG TAB PO SCH (09:37)
[2019-08-16] MEDS: APIXABAN 5 MG TABLET PO SCH (09:37)
[2019-08-16] MEDS: AMITRIPTYLINE 25 MG TAB PO SCH (09:37)
[2019-08-16] MEDS: atenoloL 50 MG TAB PO SCH (09:38)
[2019-08-16] MEDS: ASPIRIN EC 81 MG TAB PO SCH (09:38)
[2019-08-16] MEDS: PANTOPRAZOLE 40MG TABLET PO SCH (09:38)
--- NOTE | 2019-08-16 11:11 | P.DS ---
Admission Date: 08/15/19 Discharge Date: 08/16/19 Primary Care Provider: Dr. Diaz Disposition: ROUTINE DISCHARGE Discharge Condition: GOOD Reason for Admission: Near syncope; atrial fibrillation; persistant coughing & congestion Consultations: none Procedures: CT Chest: COMPARISON: No prior exams provided for comparison. FINDINGS: Lungs: Scattered bilateral subsegmental atelectasis/pleural parenchymal scar. 3 mm right middle lobe subpleural nodule (series 203 image 59 and series 202 image 80). No focal consolidation. Airways are patent. Pleura: No effusion. No pneumothorax. Heart and pericardium: The heart is enlarged. Coronary artery calcification. Minimal pericardial fluid. Left chest wall dual-lead pacer. Mediastinum and joan: No pathologically enlarged lymph nodes. Small hiatal hernia. Lower neck and chest wall: Unremarkable Vessels: Mild atherosclerotic disease. The ascending aorta measures 3.5 cm in maximum diameter. There is an ovoid smoothly marginated low density structure with thin peripheral calcification abutting the ascending aorta measuring 3.1 x 1.9 x 2.3 cm. Upper abdomen: The liver is enlarged. Subcentimeter left hepatic hypodensity which is too small to characterize. Bones: Mild multilevel spondylosis. No acute fracture. IMPRESSION: 1. No acute infiltrate. 2. Ovoid low-density structure with thin peripheral calcification abutting the ascending aorta measuring 3.1 x 1.9 x 2.3 cm possibly vascular in origin the setting of a chronic pseudoaneurysm. Follow up/further evaluation is recommended. 3. 3.0 mm solid right middle lobe pulmonary nodule. No routine follow-up imaging is recommended. These guidelines do not apply to immunocompromised patients and patients with cancer. Follow up in patients with significant comorbidities as clinically warranted. For lung cancer screening, adhere to Lung -RADS guidelines. Reference: Radiology. 2017; 284(1):228-43. 4. Other findings as above. V/Q Scan: COMPARISON: Thorax Wo Con dated 08/15/2019 TECHNIQUE: 13.3mCi Xe-133 gas inhaled and 7.2mCi Tc-MAA IV. Planar ventilation scan was performed in posterior projection after Xe-133 gas inhalation (wash-in, equilibrium, and wash-out phases) followed by perfusion scan with Tc-MAA IV in multiple projections. Examination is correlated with recent chest radiograph. FINDINGS: Normal ventilation with appropriate wash-out and no significant air- trapping. No mismatched segmental perfusion defect. IMPRESSION: Very low probability of acute pulmonary embolism. ECHO: EF within normal range LEFT VENTRICULAR WALL MOTION: NORMAL. DOPPLER/COLOR FLOW: MILD TRICUSPID REGURGITATION. NORMAL RIGHT VENTRICULAR SYSTOLIC PRESSURE. COMMENTS: NORMAL LEFT VENTRICULAR EJECTION FRACTION. DILATED LEFT ATRIUM. PACEMAKER IN RIGHT VENTRICLE. MILD TRICUSPID REGURGITATION. Follow up CT Chest with contrast: COMPARISON: August 15, 2019 CT TECHNIQUE: Computed axial tomography of the chest was obtained. 100 cc Isovue 300 was administered [address] All CT scans are performed using dose optimization technique as appropriate and may include automated exposure control or mA/KV adjustment according to patient size. FINDINGS: A 28 millimeter mass is present within the anterior mediastinum abutting the ascending thoracic aorta. When compared to the prior unenhanced CT scan no enhancement is demonstrated. The Hounsfield unit equals 30. 3 millimeter right middle lobe nodule are unchanged. A pleural effusion is not present. A pericardial effusion is not seen. A small hiatal hernia IMPRESSION: 28 millimeter low to intermediate density mass within the anterior mediastinum does not enhance. 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 A pseudoaneurysm is doubtful. It is recommended that the patient have a followup CT chest in 6 months to assess stability Venous doppler: COMPARISON: No comparisons TECHNIQUE: Real-time sonographic interrogation of the left and right lower extremity deep venous systems was performed. FINDINGS: Normal compressibility, flow augmentation, phasic flow and spontaneous flow is identified in both the left and right lower extremity deep venous systems. IMPRESSION: No sonographic evidence of left or right lower extremity deep venous thrombosis. Medical Problem list: Presyncope likely acute renal injury from dehydration and overmedication Atrial fibrillation on chronic anti coagulation therapy with pacemaker. 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 He had gone to get an x-ray done. Apparently was found to have AFib with RVR. He was sent to the ER for further evaluation. Patient was admitted for further evaluation for possible underlying cause. Hospital Course: Patient presented with chronic cough. This is likely related to Arb inhibitor and likely underlying COPD. The cough has resolved since being off Arb inhibitor. At discharge will recommend to discontinue Arb inhibitor- candesartan. Will recommend that the patient follow up with pulmonology as an outpatient to further evaluate. Patient will likely require pulmonary function test to further evaluate for likely underlying COPD. This can be further addressed by his PCP. Patient with history of AFib on chronic anti coagulation therapy and prior pacemaker. Heart rate was slightly accelerated upon initial evaluation. Patient was restarted on medication. This has remained stable. Echocardiogram unremarkable. At discharge she will continue with Eliquis 5 mg 1 pill twice daily, flecainide 100 mg 1 pill twice daily, and atenolol 100 mg daily. Recommend follow up with cardiology as directed. Patient had reported fever last week. No fever noted on evaluation. White count within normal range. Apparently blood cultures were positive. This is likely a contaminant. Repeat pro calcitonin and negative. No evidence of infection noted. Patient without fever during the course of his stay. Patient does not appear septic. Fever likely related to viral illness. No need for antibiotics at discharge. During the course of his stay patient had CT scan, V/Q scan. Pulmonary embolism was ruled out. CT scan did reveal a 28 mm density mass within the anterior mediastinum. CT chest with contrast was done. 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 Recommend to recheck CT chest in 3-6 months. Recommend follow up with his PCP to further address. 3 mm solid right middle lobe nodule noted. Recommend pulmonology evaluation as an outpatient to further evaluate. Patient will likely require CT scan in 3-6 months to monitor stability. Patient with history of hypertension. Blood pressure was low during initial evaluation. Patient had reported some dizziness and presyncope. Patient was given IV fluids. During the course of his stay candesartan was discontinued. At discharge will recommend to continue with Norvasc 10 mg daily and atenolol 100 mg daily. Recommend to maintain blood pressures less 150/80. Further adjustment can be done by his PCP. Patient with history of GERD and hiatal hernia. At discharge he will continue with his medications of Nexium 20 mg 1 pill twice daily. Vital Signs/Physical Exam: Temp Pulse Resp BP Pulse Ox 96.9 F 66 18 121/66 95 08/16/19 08:00 08/16/19 09:37 08/16/19 08:00 08/16/19 09:37 08/16/19 08:00 General: Alert, In no apparent distress, Oriented x3, Cooperative HEENT: Atraumatic Neck: Supple Respiratory: Clear to auscultation bilaterally, Normal air movement Cardiovascular: Normal pulses, Regular rate/rhythm Gastrointestinal: Normal bowel sounds, Soft and benign, Non-distended, No tenderness, No masses, No rebound, No guarding Musculoskeletal: No erythema, No tenderness, No warmth Integumentary: No tenderness/swelling, No erythema, No warmth, No cyanosis Neurological: Normal speech, Normal strength at 5/5 x4 extr, Normal tone, Normal affect Laboratory Data at Discharge: WBC 8.2 K/uL (4.3-10.9) 08/16/19 05:11 Hgb 11.1 g/dL (13.6-17.9) L 08/16/19 05:11 Hct 32.3 % (39.6-49.0) L 08/16/19 05:11 Plt Count 150 K/uL (152-406) L 08/16/19 05:11 PT Cancelled 08/15/19 01:27 INR Cancelled 08/15/19 01:27 Sodium 142 mmol/L (136-145) 08/16/19 05:11 Potassium 3.7 mmol/L (3.5-5.1) 08/16/19 05:11 BUN 21 mg/dL (7-18) H 08/16/19 05:11 Creatinine 0.95 mg/dL (0.55-1.3) 08/16/19 05:11 Glucose 125 mg/dL (74-106) H 08/16/19 05:11 Magnesium Cancelled 08/15/19 01:27 Total Bilirubin 0.5 mg/dL (0.2-1.0) 08/14/19 23:50 AST 13 U/L (15-37) L 08/14/19 23:50 ALT 20 U/L (12-78) 08/14/19 23:50 Alkaline Phosphatase 61 U/L (45-117) 08/14/19 23:50 Troponin I < 0.02 ng/mL (0.0-0.045) 08/15/19 12:14 Triglycerides 95 mg/dL (<150) 08/15/19 06:05 Cholesterol 112 mg/dL (<200) 08/15/19 06:05 HDL Cholesterol 32 mg/dL (40-60) L 08/15/19 06:05 Cholesterol/HDL Ratio 3.50 08/15/19 06:05 Home Medications: Amitriptyline [Elavil*] 25 mg PO BID 08/15/19 Amlodipine Besylate 10 mg PO DAILY 08/15/19 Apixaban [Eliquis] 5 mg PO BID 08/15/19 Esomeprazole Mag Trihydrate [Nexium] 20 mg PO BID 08/15/19 Flecainide [Tambocor*] 100 mg PO BID 08/15/19 Rosuvastatin [Crestor*] 5 mg PO BEDTIME 08/15/19 atenoloL [Atenolol] 100 mg PO DAILY 08/15/19 Patient Discharge Instructions: 1. Follow up with PCP in 1-2 weeks to follow up this hospitalization. 2. Patient presented with chronic cough. This is likely related to Arb inhibitor and likely underlying COPD. The cough has resolved since being off Arb inhibitor. At discharge will recommend to discontinue Arb inhibitor-candesartan. Will recommend that the patient follow up with pulmonology as an outpatient to further evaluate. Patient will likely require pulmonary function test to further evaluate for likely underlying COPD. This can be further addressed by his PCP. 3. Patient with history of AFib on chronic anti coagulation therapy and prior pacemaker. Heart rate was slightly accelerated upon initial evaluation. Patient was restarted on medication. This has remained stable. Echocardiogram unremarkable. At discharge she will continue with Eliquis 5 mg 1 pill twice daily, flecainide 100 mg 1 pill twice daily, and atenolol 100 mg daily. Recommend follow up with cardiology as directed. 4. Patient had reported fever last week. No fever noted on evaluation. White count within normal range. Apparently blood cultures were positive. This is likely a contaminant. Repeat pro calcitonin and negative. Patient without fever during the course of his stay. Patient does not appear septic. Fever likely related to viral illness. No need for antibiotics at discharge. 5. During the course of his stay patient had CT scan , V/Q scan. Pulmonary embolism was ruled out. CT scan did reveal a 28 mm density mass within the anterior mediastinum. CT chest with contrast was done. 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 Recommend to recheck CT chest in 3-6 months. Recommend follow up with his PCP to further address. 6. 3 mm solid right middle lobe nodule noted. Recommend pulmonology evaluation as an outpatient to further evaluate. Patient will likely require CT scan in 3-6 months to monitor stability. 7. Patient with history of hypertension. Blood pressure was low. Patient had reported some dizziness and presyncope. During the course of his stay candesartan was discontinued. At discharge will recommend to continue with Norvasc 10 mg daily and atenolol 100 mg daily. Recommend to maintain blood pressures less 150/80. Further adjustment can be done by his PCP. 7. Patient with history of GERD and hiatal hernia. At discharge he will continue with his medications of Nexium 20 mg 1 pill twice daily. Diet: AHA Activity: Fall precautions Followup: [facility] [Provider Group] - 1-2 Weeks (art specialist- call to schedule an appointment) Cody Mondragon MD [ACTIVE - CAN ADMIT] - (booster pump oiler- follow up in 2-4 weeks, call to schedule an appointment) Abdias Diaz MD [Primary Care Provider] - 1-2 Weeks (call to schedule an appointment) Time spent managing pt's care (in minutes): 55
[2019-08-16 12:18] VITALS: BP 137/70; TEMP 96.6
[2019-08-16 13:02] VITALS: O2SAT 98
== END 2019-08-16 12:27 | disposition home or self-care (01) ==
LOC: ER 22:41 → ERHOLD 08-15 01:38 → 4TH 08-15 10:24
PROVIDERS: ADMIT Hospitalist; ATTEND Hospitalist
DX: R55 Syncope and collapse (principal); I48.91 Unspecified atrial fibrillation; I10 Essential (primary) hypertension; R05 Cough; R22.2 Localized swelling, mass and lump, trunk; R91.1 Solitary pulmonary nodule; K21.9 Gastro-esophageal reflux disease without esophagitis; K44.9 Diaphragmatic hernia without obstruction or gangrene; Z79.01 Long term (current) use of anticoagulants; Z95.0 Presence of cardiac pacemaker
CPT/HCPCS: 96365; 96361; 96368; 93005 ×2; 93306; 87040 ×4; 85025 ×3; 80048; 36415 ×3; 83735; 87205 ×5; 85610; 80061; 85379; 87077 ×2; 87186 ×2; 84484 ×3; 80053; 84145 ×3; 83880; 87804 ×2; 71250; 71260; 71045; 93880; 93970; 78582; 99285; Q9967; J0456; J1650; J0696 ×2; J7030 ×4; J2930; A9558; A9540; G0378 ×3